=== PATIENT | female | born 1995 | race Caucasian/White ===

== ENCOUNTER → 2024-07-02 14:55 | Outpatient (REF) | payer BC, SELFPAY ==
[2024-07-02 15:44] LABS: % Basophils 0.7 % (0-2); % Eosinophils 1.1 % (0-6); % Immature Granulocytes 0.4 % (0-0.5); % Lymphocytes 24.5 % (20.5-51.1); % Monocytes 6.8 % (1.7-9.3); % Neutrophils 66.5 % (42.2-75.2); Absolute Basophils 0.1 10^3/uL (0-0.2); Absolute Eosinophils 0.1 10^3/uL (0-0.7); Absolute Immature Granulocytes 0.1 10^3/uL (0-0.05); Absolute Lymphocytes 2.9 10^3/uL (1.2-3.4); Absolute Monocytes 0.8 10^3/uL (0.1-0.6); Absolute Neutrophils 7.9 10^3/uL (1.4-6.5); Hematocrit 34.4 % (37.0-47.0); Hemoglobin 11.8 g/dL (12.0-16.0); Mean Corp Hgb Conc. 34.3 g/dL (33.0-37.0); Mean Corpuscular Hgb 29.8 pg (27.0-31.0); Mean Corpuscular Volume 86.9 fL (81.0-99.0); Mean Platelet Volume 9.8 fL (7.4-10.4); Nucleated Red Blood Cells % 0 %; Platelet Count 310 10^3/uL (130-400); Red Blood Cell Count 3.96 10^6/uL (4.20-5.40); Red Cell Dist. Width 14.5 % (11.5-14.5); White Blood Cell Count 11.9 10^3/uL (4.8-10.8)
[2024-07-03 09:04] LABS: Glycohemoglobin (HgbA1c) 5.2 % (4.0-5.6)
== END ==
LOC: REG 14:55
PROVIDERS: ATTENDING PHYSICIAN Advanced Practice Midwife
DX: Z32.01 Encounter for pregnancy test, result positive (principal)
CPT/HCPCS: 36415; 83036; 84702; 85025; 86780; 86900; 86901

== ENCOUNTER → 2024-12-18 11:15 | Outpatient (REF) | payer BC, SELFPAY | LOC: PNTC 11:15 | PROVIDERS: ATTENDING PHYSICIAN Obstetrics & Gynecology | DX: Z34.90 Encounter for supervision of normal pregnancy, unspecified, unspecified trimester (principal) | CPT/HCPCS: 36415; 86850; 86900; 86901; 96372; J2790 ==

== ENCOUNTER 2025-02-09 21:42 | Inpatient (IN) | payer BC, SELFPAY ==
[2025-02-09 22:36] VITALS: BP 132/84; BMI 28.4
[2025-02-09 23:15] LABS: Hematocrit 31.1 % (37.0-47.0); Hemoglobin 10.4 g/dL (12.0-16.0); Mean Corp Hgb Conc. 33.4 g/dL (33.0-37.0); Mean Corpuscular Volume 83.4 fL (81.0-99.0); Platelet Count 232 10^3/uL (130-400); Red Cell Dist. Width 15.2 % (11.5-14.5)
[2025-02-09] MEDS: LR 1000 IV (23:16)
[2025-02-09 23:39] LABS: ALT (SGPT) 11 U/L (0-35); AST (SGOT) 19 U/L (14-36); Albumin 3.9 g/dl (3.5-5.0); Alkaline Phosphatase 185 U/L (38-126); Blood Urea Nitrogen 11 mg/dl (7-17); Calcium 9.9 mg/dl (8.4-10.2); Carbon Dioxide 19 mmol/L (22-30); Chloride 108 mmol/L (98-107); Estimated Creatinine Clearance 120 ml/min; Glucose 95 mg/dl (70-99); Potassium 4.2 mmol/L (3.5-5.1); Sodium 133 mmol/L (135-145); Total Protein 7.5 g/dl (6.3-8.2); eGFR > 60.00
[2025-02-10] MEDS: BICITRA 30 ML PO (00:03)
[2025-02-10] MEDS: TYLENOL 975 MG PO (00:04)
[2025-02-10] MEDS: CLEOCIN 50 IV (00:05)
[2025-02-10] MEDS: GENTAMICIN 58.5 MG IV (00:37)
[2025-02-10] MEDS: ZITHROMAX INFUSION 250 IV (01:07)
[2025-02-10] MEDS: LR 1000 IV (03:30)
[2025-02-10] MEDS: ZOFRAN 4 MG IV (04:36)
[2025-02-10 06:56] LABS: Hematocrit 30.7 % (37.0-47.0); Hemoglobin 10.0 g/dL (12.0-16.0); Mean Corp Hgb Conc. 32.6 g/dL (33.0-37.0); Mean Corpuscular Volume 84.8 fL (81.0-99.0); Platelet Count 218 10^3/uL (130-400); Red Cell Dist. Width 15.1 % (11.5-14.5)
[2025-02-10] MEDS: COLACE PO (07:30)
[2025-02-10] MEDS: TORADOL 15 MG IV ×3 (07:30→19:50)
[2025-02-10] MEDS: FEOSOL 325 MG PO (14:08)
[2025-02-10] MEDS: COLACE 100 MG PO (19:50)
[2025-02-10] MEDS: MYLICON 80 MG PO (21:12)
[2025-02-11] MEDS: TORADOL 15 MG IV (01:32)
[2025-02-11 05:59] LABS: Hematocrit 23.5 % (37.0-47.0); Hemoglobin 7.6 g/dL (12.0-16.0); Mean Corp Hgb Conc. 32.3 g/dL (33.0-37.0); Mean Corpuscular Volume 84.2 fL (81.0-99.0); Platelet Count 175 10^3/uL (130-400); Red Cell Dist. Width 15.4 % (11.5-14.5)
--- NOTE | 2025-02-11 06:29 | W.PN.ANS.POP ---
Anesthesia Post Operative
- Anesthesia Post Op Note
Vital Signs Stable-See Nursing Note: Yes
Airway Patent: Yes
Adequate Pain Control: Yes
Change in Mental Status: No
Current Postoperative Nausea & Vomiting: No
Anesthesia Complications: No
General Anesthetic Recall: No
Unplanned Admission: No
Post Op Hydration Adequate: Yes
[2025-02-11] MEDS: TYLENOL 650 MG PO ×4 (06:41→22:55)
[2025-02-11] MEDS: FEOSOL 325 MG PO (07:53)
[2025-02-11] MEDS: COLACE 100 MG PO ×2 (07:53→20:28)
[2025-02-11] MEDS: MOTRIN 600 MG PO ×3 (08:04→20:28)
[2025-02-11] MEDS: MYLICON 80 MG PO ×3 (08:15→22:55)
[2025-02-11] MEDS: RHOGAM 300 MCG IM (09:49)
[2025-02-11 15:21] LABS: Syphilis/T. pallidum Ab Reflex Negative (Negative)
[2025-02-12] MEDS: TYLENOL 650 MG PO ×2 (02:56→08:54)
[2025-02-12] MEDS: MOTRIN 600 MG PO ×2 (02:56→08:55)
[2025-02-12] MEDS: MYLICON 80 MG PO (05:49)
[2025-02-12] MEDS: COLACE 100 MG PO (08:54)
[2025-02-12] MEDS: FEOSOL 325 MG PO (08:54)
--- NOTE | 2025-02-12 12:04 | W.DS.TRANS ---
DC Summary - Relationship Management Lead
-
Discharge Instructions:
Discharge Diagnosis/Procedures delivery
Instructions:
Stand-Alone Forms: LDRP Delivery
Changes to Home Medications: No
Discharge Medications:
DC Medications w/original date entered in [facility]
docusate sodium 100 mg capsule 100 mg PO BID #0 caps 02/12/25
ferrous sulfate 325 mg (65 mg iron) tablet (FeroSul) 325 mg PO DAILY #0 tabs 02/12/25
ibuprofen 600 mg tablet 600 mg PO Q6HPRN PRN cramps #30 tabs 02/12/25
sennosides 8.6 mg tablet (Estella-siobhan) 17.2 mg (2 x 8.6 mg) PO HSPRN PRN constipation #0 tabs 02/12/25
simethicone 80 mg chewable tablet 80 mg PO TIDPRN PRN flatulence #0 tabs 02/12/25
Home Medication Changes
Pending Results: No
Total time spent discharging patient (in min): 20
== END 2025-02-12 12:48 | disposition home or self-care (01) | DRG 787 ==
LOC: LDRP 21:42
PROVIDERS: Obstetrics & Gynecology; ADMITTING PHYSICIAN Obstetrics & Gynecology
PROC: 10D00Z1 Extraction of Products of Conception, Low, Open Approach (ICD-10-PCS; 2025-02-10)
PROC: 6A550ZT Pheresis of Cord Blood Stem Cells, Single (ICD-10-PCS; 2025-02-10)
PROC: 3E0234Z Introduction of Serum, Toxoid and Vaccine into Muscle, Percutaneous Approach (ICD-10-PCS; 2025-02-10)
DX: O34.211 Maternal care for low transverse scar from previous cesarean delivery (principal); D62 Acute posthemorrhagic anemia; Z3A.38 38 weeks gestation of pregnancy; Z37.0 Single live birth; O90.81 Anemia of the puerperium; O36.63X0 Maternal care for excessive fetal growth, third trimester, not applicable or unspecified; Z88.0 Allergy status to penicillin; Z87.442 Personal history of urinary calculi; Z83.3 Family history of diabetes mellitus; Z82.3 Family history of stroke; Z23 Encounter for immunization
CPT/HCPCS: 80053; 85027; 85461; 86780; 86850; 86870; 86900; 86901; J2790